=== PATIENT | female | born 1935 | race Caucasian/White ===

== ENCOUNTER 2021-02-01 23:15 | Inpatient (IN) | payer MEDICARE ==
[2021-02-01] MEDS ORDERED: SODIUM CHLORIDE 0.9% 1,000 ML IV STA ×2 (23:28)
--- NOTE | 2021-02-01 23:36 | ED ---
SOB HPI - General Chief Complaint: Shortness of Breath Stated Complaint: SOB Time Seen by Provider: 02/01/21 23:17 Source: patient, EMS, RN notes reviewed, old records reviewed Mode of arrival: EMS Limitations: no limitations - History of Present Illness Initial Comments: This is an 85-year-old female presenting in severe shortness of breath. Patient presents today and complicated atrial fibrillation with RVR severe shortness of breath severe hypoxia oxygen 60s. Patient apparently had coronavirus a-month to 2 months ago. Patient was found to be unresponsive with low pulse ox at outpatient therapy Center. Patient brought to ER by EMS EMS provides history MD Complaint: shortness of breath -: unknown Severity: severe Severity scale (1-10): 10 Consistency: constant Improves With: nothing Worsens With: exertion, movement Known History Of: congestive heart failure, recurrent pneumonia Context: recent URI, recent illness, other (Recently coronavirus) Associated Symptoms: cough Treatments Prior to Arrival: oxygen - Related Data Home Medications Medication Instructions Recorded Confirmed Ascorbic Acid [Vitamin C] 500 mg PO DAILY 04/23/14 02/02/21 Folic Acid 1 mg PO DAILY 04/23/14 02/02/21 atenoloL [Tenormin] 50 mg PO DAILY 04/23/14 02/02/21 Acetaminophen Tab [Tylenol Tab] 500 mg PO Q6H PRN 02/02/21 02/02/21 Apixaban [Eliquis] 2.5 mg PO BID@0900,1700 02/02/21 02/02/21 Cholecalciferol [Vitamin D3 (25 50 mcg PO DAILY 02/02/21 02/02/21 Mcg = 1000 Iu)] Cranberry 450mg 900 mg PO DAILY 02/02/21 02/02/21 Famotidine [Pepcid] 20 mg PO BID@0900,1700 02/02/21 02/02/21 Insulin Lispro [humaLOG Kwikpen] See Protocol SQ AC-TID 02/02/21 02/02/21 Losartan [Cozaar] 50 mg PO DAILY 02/02/21 02/02/21 Multivitamins, Thera [Multivitamin 1 tab PO DAILY 02/02/21 02/02/21 (formulary)] Triamcinolone Acetonide 1 spray EA NOSTRIL DAILY 02/02/21 02/02/21 [Triamcinolone Acetonide 0.055MG Nasal] Zinc 50 mg PO DAILY 02/02/21 02/02/21 cloNIDine 0.3 MG/24HR PATCH 1 patch TRANSDERM FR 02/02/21 02/02/21 [Catapres-Tts 0.3MG Patch] metFORMIN HCL [Glucophage] 500 mg PO BID@0900,1700 02/02/21 02/02/21 predniSONE 5 mg PO DAILY 02/02/21 02/02/21 Allergies Allergy/AdvReac Type Severity Reaction Status Date / Time acetaminophen [From Vicodin] Allergy Confusion Verified 02/02/21 07:04 codeine Allergy Confusion Verified 02/02/21 07:04 hydrocodone bitartrate Allergy Confusion Verified 02/02/21 07:04 [From Vicodin] latex Allergy Rash/Hives Verified 02/02/21 07:04 tramadol HCl [From Ultram] Allergy Nausea Verified 02/02/21 07:04 Review of Systems ROS Statement: Those systems with pertinent positive or pertinent negative responses have been documented in the HPI. ROS Other: All systems not noted in ROS Statement are negative. Past Medical History Past Medical History: Rheumatoid Arthritis (RA), Supraventricular Tachycardia (SVT) History of Any Multi-Drug Resistant Organisms: MRSA Date of last positivie culture/infection: 09/15/17 MDRO Source:: TOE Past Surgical History: Hysterectomy Additional Past Surgical History / Comment(s): fransisco foot surgery, "abd surgery for kink in colon" Past Anesthesia/Blood Transfusion Reactions: Postoperative Nausea & Vomiting (PONV) Past Psychological History: No Psychological Hx Reported Smoking Status: Never smoker Past Alcohol Use History: None Reported Past Drug Use History: None Reported General Exam Limitations: no limitations, altered mental status General appearance: alert, anxious, lethargic, in distress Head exam: Present: atraumatic, normocephalic, normal inspection Eye exam: Present: normal appearance, PERRL, EOMI. Absent: scleral icterus, conjunctival injection, periorbital swelling ENT exam: Present: normal exam, mucous membranes moist Neck exam: Present: normal inspection. Absent: tenderness, meningismus, lymphadenopathy Respiratory exam: Present: respiratory distress, rales, accessory muscle use, decreased breath sounds, prolonged expiratory. Absent: wheezes, rhonchi, stridor Cardiovascular Exam: Present: tachycardia, irregular rhythm, normal heart sounds. Absent: systolic murmur, diastolic murmur, rubs, gallop, clicks GI/Abdominal exam: Present: soft, normal bowel sounds. Absent: distended, tenderness, guarding, rebound, rigid Extremities exam: Present: normal inspection, full ROM, normal capillary refill. Absent: tenderness, pedal edema, joint swelling, calf tenderness Back exam: Present: normal inspection Neurological exam: Present: alert, oriented X3, CN II-XII intact Psychiatric exam: Present: normal affect, normal mood Skin exam: Present: warm, dry, intact, normal color. Absent: rash Course Vital Signs 02/01/21 02/01/21 02/01/21 23:16 23:47 23:54 Temperature 97.9 F Pulse Rate 121 H 130 H Pulse Rate [ Undertaker Helper ] Respiratory 36 H 36 H 385 H Rate Blood Pressure 144/98 135/108 Blood Pressure [Right Arm] O2 Sat by Pulse 88 L 87 L Oximetry 02/02/21 02/02/21 02/02/21 00:00 00:12 00:30 Temperature Pulse Rate 92 92 Pulse Rate [ 130 H Undertaker Helper ] Respiratory 36 H 36 H Rate Blood Pressure 150/100 160/100 Blood Pressure [Right Arm] O2 Sat by Pulse 100 100 Oximetry 02/02/21 02/02/21 02/02/21 01:00 02:00 04:00 Temperature 97.5 F L Pulse Rate 90 92 Pulse Rate [ 100 Undertaker Helper ] Respiratory 32 H 32 H 32 H Rate Blood Pressure 150/80 148/99 Blood Pressure 157/90 [Right Arm] O2 Sat by Pulse 99 95 92 L Oximetry 02/02/21 02/02/21 02/02/21 08:00 12:00 13:01 Temperature 97.5 F L Pulse Rate 107 H Pulse Rate [ 91 110 H Undertaker Helper ] Respiratory 38 H Rate Blood Pressure 135/98 Blood Pressure 138/100 148/87 [Right Arm] O2 Sat by Pulse 88 L 87 L 86 L Oximetry 02/02/21 02/02/21 14:38 16:38 Temperature 99.4 F Pulse Rate 107 H 103 H Pulse Rate [ Undertaker Helper ] Respiratory 36 H 36 H Rate Blood Pressure 115/75 105/78 Blood Pressure [Right Arm] O2 Sat by Pulse 79 L 77 L Oximetry - Reevaluation(s) Reevaluation #1: 02/02/21 00:00 Medical record is reviewed Reevaluation #2: 02/02/21 00:00 Patient's transferring physician prior to arrival - Consultations Consultation #1: Spoke with Dr. Gregoiro, patient will be admitted to months Medical Decision Making - Medical Decision Making 85 female DF for evaluation possible recurrent coronavirus she states she had got over coronavirus about a month ago patient has severe shortness of breath here in the ER. Significant hypoxia pulmonary edema and x-ray. - Lab Data Result diagrams: 02/01/21 23:38 02/01/21 23:38 Lab Results 02/01/21 02/01/21 02/01/21 Range/Units 23:38 23:38 23:38 WBC 9.9 (3.8-10.6) k/uL RBC 4.15 (3.80-5.40) m/uL Hgb 12.4 (11.4-16.0) gm/dL Hct 37.8 (34.0-46.0) % MCV 91.2 (80.0-100.0) fL MCH 29.9 (25.0-35.0) pg MCHC 32.8 (31.0-37.0) g/dL RDW 16.1 H (11.5-15.5) % Plt Count 281 (150-450) k/uL MPV 8.2 Neutrophils % 79 % Lymphocytes % 16 % Monocytes % 3 % Eosinophils % 0 % Basophils % 0 % Neutrophils # 7.8 H (1.3-7.7) k/uL Lymphocytes # 1.6 (1.0-4.8) k/uL Monocytes # 0.3 (0-1.0) k/uL Eosinophils # 0.0 (0-0.7) k/uL Basophils # 0.0 (0-0.2) k/uL Anisocytosis Slight PT 12.1 H (9.0-12.0) sec INR 1.2 H (<1.2) APTT 22.9 (22.0-30.0) sec D-Dimer 4.26 H (<0.60) mg/L FEU Sodium 144 (137-145) mmol/L Potassium 4.3 (3.5-5.1) mmol/L Chloride 107 (98-107) mmol/L Carbon Dioxide 23 (22-30) mmol/L Anion Gap 14 mmol/L BUN 22 H (7-17) mg/dL Creatinine 0.74 (0.52-1.04) mg/dL Est GFR (CKD-EPI)AfAm 87 (>60 ml/min/1.73 sqM) Est GFR (CKD-EPI)NonAf 76 (>60 ml/min/1.73 sqM) Glucose 106 H (74-99) mg/dL Lactic Ac Sepsis Rflx Plasma Lactic Acid Munir (0.7-2.0) mmol/L Calcium 8.7 (8.4-10.2) mg/dL Magnesium 2.0 (1.6-2.3) mg/dL Total Bilirubin 1.1 (0.2-1.3) mg/dL AST 85 H (14-36) U/L ALT 34 (4-34) U/L Alkaline Phosphatase 66 (38-126) U/L Lactate Dehydrogenase 2685 H (313-618) U/L C-Reactive Protein 26.2 H (<1.0) mg/dL Total Protein 6.1 L (6.3-8.2) g/dL Albumin 3.2 L (3.5-5.0) g/dL Coronavirus (PCR) (Not Detectd) 02/01/21 02/02/21 02/02/21 Range/Units 23:38 00:12 00:15 WBC (3.8-10.6) k/uL RBC (3.80-5.40) m/uL Hgb (11.4-16.0) gm/dL Hct (34.0-46.0) % MCV (80.0-100.0) fL MCH (25.0-35.0) pg MCHC (31.0-37.0) g/dL RDW (11.5-15.5) % Plt Count (150-450) k/uL MPV Neutrophils % % Lymphocytes % % Monocytes % % Eosinophils % % Basophils % % Neutrophils # (1.3-7.7) k/uL Lymphocytes # (1.0-4.8) k/uL Monocytes # (0-1.0) k/uL Eosinophils # (0-0.7) k/uL Basophils # (0-0.2) k/uL Anisocytosis PT (9.0-12.0) sec INR (<1.2) APTT (22.0-30.0) sec D-Dimer (<0.60) mg/L FEU Sodium (137-145) mmol/L Potassium (3.5-5.1) mmol/L Chloride (98-107) mmol/L Carbon Dioxide (22-30) mmol/L Anion Gap mmol/L BUN (7-17) mg/dL Creatinine (0.52-1.04) mg/dL Est GFR (CKD-EPI)AfAm (>60 ml/min/1.73 sqM) Est GFR (CKD-EPI)NonAf (>60 ml/min/1.73 sqM) Glucose (74-99) mg/dL Lactic Ac Sepsis Rflx Y Plasma Lactic Acid Munir 4.8 H* (0.7-2.0) mmol/L Calcium (8.4-10.2) mg/dL Magnesium (1.6-2.3) mg/dL Total Bilirubin (0.2-1.3) mg/dL AST (14-36) U/L ALT (4-34) U/L Alkaline Phosphatase (38-126) U/L Lactate Dehydrogenase (313-618) U/L C-Reactive Protein (<1.0) mg/dL Total Protein (6.3-8.2) g/dL Albumin (3.5-5.0) g/dL Coronavirus (PCR) Detected A (Not Detectd) - EKG Data -: EKG Interpreted by Me (EKG A. fib with RVR 126 QRS 84 QTc 475) - Radiology Data Radiology results: report reviewed (Chest x-ray shows severe pulmonary edema likely arts likely coronavirus), image reviewed Critical Care Time Critical Care Time: Yes Total Critical Care Time: 31 Disposition Clinical Impression: Congestive heart failure, Acute pulmonary edema, Acute respiratory failure, Atrial fibrillation with RVR, Coronavirus infection, Pneumonia due to COVID-19 virus Narrative: ?repeat COVID positive? Disposition: DC/TRNS W/I HOSP TO SNF SWING Condition: Critical Is patient prescribed a controlled substance at d/c from ED?: No
[2021-02-01] MEDS ORDERED: DILTIAZEM DRIP BOLUS FROM BAG 1 MG SOLN IV ONE (23:43)
[2021-02-01] MEDS ORDERED: MORPHINE SULFATE 2 MG/ML SYRINGE IVP STA (23:43)
[2021-02-01] MEDS ORDERED: DILTIAZEM 125 MG in SODIUM CHLORIDE 0.9% 100 ML IV SCH (23:45)
[2021-02-01 23:54] LABS: Anisocytosis Slight; Basophils % (A) 0 %; Eosinophils % (A) 0 %; HCT 37.8 % (34.0-46.0); HGB 12.4 gm/dL (11.4-16.0); Lymphocytes # (A) 1.6 k/uL (1.0-4.8); Lymphocytes % (A) 16 %; MCH 29.9 pg (25.0-35.0); MCHC 32.8 g/dL (31.0-37.0); MCV 91.2 fL (80.0-100.0); Mean Platelet Volume 8.2; Monocytes # (A) 0.3 k/uL (0-1.0); Monocytes % (A) 3 %; Neutrophils # (A) 7.8 k/uL (1.3-7.7); Neutrophils % (A) 79 %; Platelet Count 281 k/uL (150-450); RBC 4.15 m/uL (3.80-5.40); RDW 16.1 % (11.5-15.5); WBC 9.9 k/uL (3.8-10.6)
[2021-02-02 00:05] LABS: Albumin 3.2 g/dL (3.5-5.0); Calcium 8.7 mg/dL (8.4-10.2); Total Bilirubin 1.1 mg/dL (0.2-1.3); Total Protein 6.1 g/dL (6.3-8.2)
--- NOTE | 2021-02-02 00:12 | XR ---
EXAMINATION TYPE: XR chest 1V portable DATE OF EXAM: 02/01/2021 COMPARISON: 03/29/2018 HISTORY: Short of breath TECHNIQUE: FINDINGS: There is moderate bilateral pulmonary interstitial and airspace edema. Heart is enlarged. T horacic aorta is atheromatous. There are chest leads. IMPRESSION: Moderately severe edema is new compared to old exam and could relate to RDS.
[2021-02-02 00:14] LABS: INR 1.2 (<1.2); Partial Thromboplastin Time 22.9 sec (22.0-30.0); Prothrombin Time 12.1 sec (9.0-12.0)
[2021-02-02 00:17] LABS: C Reactive Protein 26.2 mg/dL (<1.0); D-Dimer 4.26 mg/L FEU (<0.60); Potassium 4.3 mmol/L (3.5-5.1)
[2021-02-02] MEDS ORDERED: FUROSEMIDE 10 MG/ML 4 ML VIAL IV SCH (03:00)
[2021-02-02] MEDS: MORPHINE SULFATE 2 MG/ML SYRINGE IVP PRN ×3 (03:45→14:44)
--- NOTE | 2021-02-02 09:37 | P.CNPUL ---
History of Present Illness Consult date: 02/02/21 Requesting physician: Frank Kaur Reason for consult: dyspnea, cough, hypoxemia, pneumonia, abnormal CXR/CT Chief complaint: Hypoxemic, mental status changes, atrial fibrillation. History of present illness: 85-year-old female, who presented to the emergency room on February 01, brought in by EMS, with severe shortness of breath. The patient also was noted to have atrial fibrillation, with RVR, and her saturations were apparently in the 60s. The patient was not able to give any history today. We saw her in the emergency room, room 17. She apparently was positive for coronavirus a month or 2 ago. Patient was very poorly responsive we saw her in the emergency department. She is 85 years of age. I did ask the nurse, to call the family about CODE STATUS. Currently, she was on BiPAP settings of IPAP 10, EPAP 5, and 80%. His saturations were in the low 90s. She was given a Cardizem drip at 5 mg an hour, and saline at KVO. Again, she was not very arousable, and was not able to give any additional history. White count 9.9, hemoglobin 12.4, hematocrit 37.8, platelet count 281,000. PT 12.1, INR 1.2, PTT 22.9, and d-dimer 4.26. Sodium 144, potassium 4.3, chlorides 107, common dioxide 23, anion gap 14, BUN 22, creatinine 0.74. Lactic acid was 4.8, repeat was 3.2. Troponin was 0.172. LDH 2685, and C-reactive protein 26.2. She did again test positive for coronavirus on the . Chest x-ray shows diffuse bilateral infiltrates, which could relate to COVID 19 pneumonia and/or fluid overload or both. Review of Systems REVIEW OF SYSTEMS: CONSTITUTIONAL: [Negative.] NEUROLOGIC: [ Negative.] HEENT: [ Negative.] CARDIAC: [Negative.] PULMONARY: Shortness of breath according to EMS. GI: [Negative.] : [Negative.] RHEUMATOLOGIC: [ Negative.] IMMUNOLOGIC: [ Negative.] ENDOCRINE: [Negative. ] DERMATOLOGIC: [Negative.] Past Medical History Past Medical History: Rheumatoid Arthritis (RA), Supraventricular Tachycardia (SVT) History of Any Multi-Drug Resistant Organisms: MRSA Date of last positivie culture/infection: 09/15/17 MDRO Source:: TOE Past Surgical History: Hysterectomy Additional Past Surgical History / Comment(s): fransisco foot surgery, "abd surgery for kink in colon" Past Anesthesia/Blood Transfusion Reactions: Postoperative Nausea & Vomiting (PONV) Past Psychological History: No Psychological Hx Reported Smoking Status: Never smoker Past Alcohol Use History: None Reported Past Drug Use History: None Reported Medications and Allergies Home Medications Medication Instructions Recorded Confirmed Type Ascorbic Acid [Vitamin C] 500 mg PO DAILY 04/23/14 02/02/21 History Folic Acid 1 mg PO DAILY 04/23/14 02/02/21 History atenoloL [Tenormin] 50 mg PO DAILY 04/23/14 02/02/21 History Acetaminophen Tab [Tylenol Tab] 500 mg PO Q6H PRN 02/02/21 02/02/21 History Apixaban [Eliquis] 2.5 mg PO BID@0900,1700 02/02/21 02/02/21 History Cholecalciferol [Vitamin D3 (25 50 mcg PO DAILY 02/02/21 02/02/21 History Mcg = 1000 Iu)] Cranberry 450mg 900 mg PO DAILY 02/02/21 02/02/21 History Famotidine [Pepcid] 20 mg PO BID@0900,1700 02/02/21 02/02/21 History Insulin Lispro [humaLOG Kwikpen] See Protocol SQ AC-TID 02/02/21 02/02/21 History Losartan [Cozaar] 50 mg PO DAILY 02/02/21 02/02/21 History Multivitamins, Thera [Multivitamin 1 tab PO DAILY 02/02/21 02/02/21 History (formulary)] Triamcinolone Acetonide 1 spray EA NOSTRIL DAILY 02/02/21 02/02/21 History [Triamcinolone Acetonide 0.055MG Nasal] Zinc 50 mg PO DAILY 02/02/21 02/02/21 History cloNIDine 0.3 MG/24HR PATCH 1 patch TRANSDERM FR 02/02/21 02/02/21 History [Catapres-Tts 0.3MG Patch] metFORMIN HCL [Glucophage] 500 mg PO BID@0900,1700 02/02/21 02/02/21 History predniSONE 5 mg PO DAILY 02/02/21 02/02/21 History Allergies Allergy/AdvReac Type Severity Reaction Status Date / Time acetaminophen [From Vicodin] Allergy Confusion Verified 02/02/21 07:04 codeine Allergy Confusion Verified 02/02/21 07:04 hydrocodone bitartrate Allergy Confusion Verified 02/02/21 07:04 [From Vicodin] latex Allergy Rash/Hives Verified 02/02/21 07:04 tramadol HCl [From Ultram] Allergy Nausea Verified 02/02/21 07:04 Physical Exam Osteopathic Statement: *. No significant issues noted on an osteopathic structural exam other than those noted in the History and Physical/Consult. Vitals: Vital Signs Temp Pulse Pulse Resp BP BP Pulse Ox 02/02/21 04:00 97.5 F L 100 32 H 157/90 92 L 02/02/21 02:00 92 32 H 148/99 95 02/02/21 01:00 90 32 H 150/80 99 02/02/21 00:30 92 36 H 160/100 100 02/02/21 00:12 92 36 H 150/100 100 02/02/21 00:00 130 H 02/01/21 23:54 385 H 02/01/21 23:47 130 H 36 H 135/108 87 L 02/01/21 23:16 97.9 F 121 H 36 H 144/98 88 L Intake and Output 02/01/21 02/02/21 02/02/21 22:59 06:59 14:59 Intake Total 390 Output Total 1300 Balance -910 Intake: Intake, IV Titration 390 Amount Sodium Chloride 0.9% 1, 390 000 ml @ 130 mls/hr IV . Q7H42M STA Rx#:[id number] Oral 0 Output: Urine 1300 Uretheral (Flood) 300 Other: Weight 49.895 kg No acute distress, very lethargic and somnolent, barely arousable, not able to g rosa any additional history. Saturations are in the low 90s. HEENT examination is grossly unremarkable. BiPAP mask in place. Neck supple. Full range of motion. No adenopathy thyromegaly or neck vein distention. Cardiovascular examination reveals regular rhythm rate. S1-S2 normal. No S3 or S4. No discernible murmur noted. Heart sounds distant, heart rate 92 bpm. Lungs reveal coarse bilateral rhonchi and crackles. Breath sounds equal bilaterally. She does not take deep breaths. No wheezes. Abdomen soft bowel sounds are heard. No masses or tenderness. Extremities are intact. No cyanosis clubbing or edema. Skin is without rash or lesion. Neurologic examination reveals a very lethargic and somnolent woman who is barely arousable. Results - Laboratory Findings CBC and BMP: 02/01/21 23:38 02/01/21 23:38 PT/INR, D-dimer PT 12.1 sec (9.0-12.0) H 02/01/21 23:38 INR 1.2 (<1.2) H 02/01/21 23:38 D-Dimer 4.26 mg/L FEU (<0.60) H 02/01/21 23:38 Abnormal lab findings: Abnormal Labs 02/01/21 02/01/21 02/01/21 23:38 23:38 23:38 RDW 16.1 H Neutrophils # 7.8 H PT 12.1 H INR 1.2 H D-Dimer 4.26 H BUN 22 H Glucose 106 H Plasma Lactic Acid Munir AST 85 H Lactate Dehydrogenase 2685 H Troponin I C-Reactive Protein 26.2 H Total Protein 6.1 L Albumin 3.2 L Coronavirus (PCR) 02/01/21 02/02/21 02/02/21 23:38 00:15 02:33 RDW Neutrophils # PT INR D-Dimer BUN Glucose Plasma Lactic Acid Munir 4.8 H* AST Lactate Dehydrogenase Troponin I 0.184 H* C-Reactive Protein Total Protein Albumin Coronavirus (PCR) Detected A 02/02/21 02/02/21 02/02/21 02:33 04:55 04:55 RDW Neutrophils # PT INR D-Dimer BUN Glucose Plasma Lactic Acid Munir 3.4 H* 3.2 H* AST Lactate Dehydrogenase Troponin I 0.172 H* C-Reactive Protein Total Protein Albumin Coronavirus (PCR) - Diagnostic Findings Chest x-ray: image reviewed Assessment and Plan Assessment: Acute hypoxemic respiratory failure, likely multifactorial, in part related to atrial fibrillation/RVR, possible fluid overload, possible aspiration pneumonia, and possible COVID 19 pneumonia/pneumonitis. History of rheumatoid arthritis. History of supraventricular tachycardia. Prior history of methicillin-resistant staph aureus infection of the toe. Hypothyroidism. Chronic immunosuppression, currently on methotrexate and prednisone for rheu matoid arthritis. Plan: Plan dated 02/02/2021. Since we saw the patient, the nurse did call the family and did get a DO NOT RESUSCITATE order from the family. That is very appropriate given her age and how sick she is currently. She is poorly responsive. She would not do well should she had been intubated or mechanically ventilated. The patient's currently on a Cardizem drip. She's got Lasix and morphine ordered as well. If the patient is able take oral medications, she should be placed on vitamin C, vitamin D3, and zinc. In addition, she should receive anticoagulation either with IV heparin and/or Lovenox given her A. fib and her elevated d-dimer. In addition, the patient should get Decadron 6 mg IV daily. Finally, he would not be a bad idea to place the patient on an antibiotic, such as Zosyn 3.375 g, every 12. Additional recommendations and suggestions are forthcoming. Many of these were initially placed by the primary service. No additional recommendations are made. Prognosis is very poor. Time with Patient: Greater than 30
--- NOTE | 2021-02-02 11:14 | ECHOF ---
Referral Reason:Heart Failure MEASUREMENTS -------- HEIGHT: 152.4 cm WEIGHT: 49.9 kg BP: RVIDd: 2.9 cm (< 3.3) IVSd: 1.3 cm (0.6 - 1.1) LVIDd: 3.4 cm (3.9 - 5.3) LVPWd: 1.8 cm (0.6 - 1.1) IVSs: 1.7 cm LVIDs: 2.7 cm LVPWs: 0.9 cm LA Diam: 5.1 cm (2.7 - 3.8) Ao Diam: 3.1 cm (2.0 - 3.7) LA Diam: 4.9 cm (2.7 - 3.8) MV E Shilo: 1.04 m/s MV DecT: 219 ms MV A Shilo: 0.25 m/s MV E/A Ratio: 4.07 AV maxP.41 mmHg AV maxP.41 mmHg AV meanP.50 mmHg RAP: 5.00 mmHg RVSP: 65.94 mmHg FINDINGS -------- Sinus rhythm. This was a technically adequate study. Pt is Covid positive. LV size, wall thickness and systolic function are normal, with an EF greater than 55%. The left adi tricular size is normal. The right ventricle is normal in size. The left atrium is markedly dilated. The right atrial size is normal. There is mild aortic valve sclerosis. There is mild aortic regurgitation. Peak/mean gradient acro ss the Aortic Valve is 12.41mmHg / 6.50mmHg. Moderate mitral annular calcification present. Moderate mitral regurgitation is present. [id number] tricuspid regurgitation present. There is moderate to severe pulmonary hypertensio n. The right ventricular systolic pressure, as measured by Doppler, is 65.94mmHg. Moderate pulmonic regurgitation. The aortic root size is normal. There is no pericardial effusion. CONCLUSIONS -------- 1. Pt is Covid positive. 2. LV size, wall thickness and systolic function are normal, with an EF greater than 55%. 3. The left atrium is markedly dilated. 4. There is mild aortic regurgitation. 5. Peak/mean gradient across the Aortic Valve is 12.41mmHg / 6.50mmHg. 6. Moderate mitral regurgitation is present. 7. Stvs-in-mlagmhcw tricuspid regurgitation present. 8. There is moderate to severe pulmonary hypertension. 9. Moderate pulmonic regurgitation. 10. There is no pericardial effusion. BRANCH ADMINISTRATOR: Melanie Brantley RDCS
[2021-02-02] MEDS ORDERED: LORazepam 2 MG/ML INJ IV PRN (12:38)
--- NOTE | 2021-02-02 12:57 | P.CRDCN ---
History of Present Illness Consult date: 02/02/21 History of present illness: This 85-year-old female with history of rheumatoid arthritis on steroids and methotrexate was brought into the hospital with complaints of increasing shortness of breath and altered mental status. Patient is unable to communicate and lethargic. Patient is diagnosed to have COVID infection about a month ago. She was found to be in atrial fibrillation with rapid and corresponds. Chest x- ray showed bilateral edema versus infiltrates. This is felt to be in respiratory failure secondary to pulmonary edema versus infiltrates. Patient was seen by a mobile therapist and felt to be candidate with poor prognosis. Patient is made no code by the family. They think of making her comfort care/hospice care. Patient is on IV Cardizem for control of heart rate. She is going to receive a dose of Lovenox until family decides about the further course of action. The respiratory failure felt to be multifactorial. She is being treated for "infection with steroids and according to the protocol. She is also being treated with antibiotics. 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 Overall her prognosis is very poor and most probably she will be considered for hospice care. If that's the case. We'll sign off the case. Review of Systems Not obtained Past Medical History Past Medical History: Rheumatoid Arthritis (RA), Supraventricular Tachycardia (SVT) History of Any Multi-Drug Resistant Organisms: MRSA Date of last positivie culture/infection: 09/15/17 MDRO Source:: TOE Past Surgical History: Hysterectomy Additional Past Surgical History / Comment(s): fransisco foot surgery, "abd surgery for kink in colon" Past Anesthesia/Blood Transfusion Reactions: Postoperative Nausea & Vomiting (PONV) Past Psychological History: No Psychological Hx Reported Smoking Status: Never smoker Past Alcohol Use History: None Reported Past Drug Use History: None Reported Medications and Allergies Home Medications Medication Instructions Recorded Confirmed Type Ascorbic Acid [Vitamin C] 500 mg PO DAILY 04/23/14 02/02/21 History Folic Acid 1 mg PO DAILY 04/23/14 02/02/21 History atenoloL [Tenormin] 50 mg PO DAILY 04/23/14 02/02/21 History Acetaminophen Tab [Tylenol Tab] 500 mg PO Q6H PRN 02/02/21 02/02/21 History Apixaban [Eliquis] 2.5 mg PO BID@0900,1700 04/26/21 04/26/21 History Cholecalciferol [Vitamin D3 (25 50 mcg PO DAILY 02/02/21 02/02/21 History Mcg = 1000 Iu)] Cranberry 450mg 900 mg PO DAILY 02/02/21 02/02/21 History Famotidine [Pepcid] 20 mg PO BID@0900,1700 02/02/21 02/02/21 History Insulin Lispro [humaLOG Kwikpen] See Protocol SQ AC-TID 02/02/21 02/02/21 History Losartan [Cozaar] 50 mg PO DAILY 02/02/21 02/02/21 History Multivitamins, Thera [Multivitamin 1 tab PO DAILY 02/02/21 02/02/21 History (formulary)] Triamcinolone Acetonide 1 spray EA NOSTRIL DAILY 02/02/21 02/02/21 History [Triamcinolone Acetonide 0.055MG Nasal] Zinc 50 mg PO DAILY 02/02/21 02/02/21 History cloNIDine 0.3 MG/24HR PATCH 1 patch TRANSDERM FR 02/02/21 02/02/21 History [Catapres-Tts 0.3MG Patch] metFORMIN HCL [Glucophage] 500 mg PO BID@0900,1700 02/02/21 02/02/21 History predniSONE 5 mg PO DAILY 02/02/21 02/02/21 History Allergies Allergy/AdvReac Type Severity Reaction Status Date / Time acetaminophen [From Vicodin] Allergy Confusion Verified 02/02/21 07:04 codeine Allergy Confusion Verified 02/02/21 07:04 hydrocodone bitartrate Allergy Confusion Verified 02/02/21 07:04 [From Vicodin] latex Allergy Rash/Hives Verified 02/02/21 07:04 tramadol HCl [From Ultram] Allergy Nausea Verified 02/02/21 07:04 Physical Exam Vitals: Vital Signs Temp Pulse Pulse Resp BP BP Pulse Ox 02/02/21 12:00 110 H 148/87 87 L 02/02/21 08:00 97.5 F L 91 138/100 88 L 02/02/21 04:00 97.5 F L 100 32 H 157/90 92 L 02/02/21 02:00 92 32 H 148/99 95 02/02/21 01:00 90 32 H 150/80 99 02/02/21 00:30 92 36 H 160/100 100 02/02/21 00:12 92 36 H 150/100 100 02/02/21 00:00 130 H 02/01/21 23:54 385 H 02/01/21 23:47 130 H 36 H 135/108 87 L 02/01/21 23:16 97.9 F 121 H 36 H 144/98 88 L Intake and Output 02/01/21 02/02/21 02/02/21 22:59 06:59 14:59 Intake Total 390 Output Total 1300 Balance -910 Intake: Intake, IV Titration 390 Amount Sodium Chloride 0.9% 1, 390 000 ml @ 130 mls/hr IV . Q7H42M STA Rx#:[id number] Oral 0 Output: Urine 1300 Uretheral (Flood) 300 Other: Voiding Method Indwelling Catheter Weight 49.895 kg Patient is not personally examined because of COVID infection. Information is gathered from consultants notes and also from attending nurse. We'll add Lovenox at this time. Patient is not considered for hospice care, we'll make consider IV Lanoxin for rate control. Further recommendations depend upon the clinical course Results 02/01/21 23:38 02/01/21 23:38 Cardiac Enzymes 02/01/21 02/02/21 02/02/21 Range/Units 23:38 02:33 04:55 AST 85 H (14-36) U/L Lactate Dehydrogenase 2685 H (313-618) U/L Troponin I 0.184 H* 0.172 H* (0.000-0.034) ng/mL Coagulation 02/01/21 Range/Units 23:38 PT 12.1 H (9.0-12.0) sec APTT 22.9 (22.0-30.0) sec CBC 02/01/21 Range/Units 23:38 WBC 9.9 (3.8-10.6) k/uL RBC 4.15 (3.80-5.40) m/uL Hgb 12.4 (11.4-16.0) gm/dL Hct 37.8 (34.0-46.0) % Plt Count 281 (150-450) k/uL Comprehensive Metabolic Panel 02/01/21 Range/Units 23:38 Sodium 144 (137-145) mmol/L Potassium 4.3 (3.5-5.1) mmol/L Chloride 107 (98-107) mmol/L Carbon Dioxide 23 (22-30) mmol/L BUN 22 H (7-17) mg/dL Creatinine 0.74 (0.52-1.04) mg/dL Glucose 106 H (74-99) mg/dL Calcium 8.7 (8.4-10.2) mg/dL AST 85 H (14-36) U/L ALT 34 (4-34) U/L Alkaline Phosphatase 66 (38-126) U/L Total Protein 6.1 L (6.3-8.2) g/dL Albumin 3.2 L (3.5-5.0) g/dL Current Medications Generic Name Dose Route Start Last Admin Trade Name Freq PRN Reason Stop Dose Admin Furosemide 40 mg 02/02/21 03:00 02/02/21 03:45 Furosemide 10 Mg/Ml 4 Ml Vial IV 40 mg Q12H EAGLE Administration Diltiazem HCl 125 mg/ Sodium 125 mls @ 5 mls/hr 02/01/21 23:45 02/02/21 00:01 Chloride IV 5 mg/hr .Q24H EAGLE 5 mls/hr Administration 5 MG/HR Lorazepam 0.5 mg 02/02/21 12:38 Lorazepam 2 Mg/Ml Inj IV Q6HR PRN Anxiety Morphine Sulfate 2 mg 02/01/21 23:43 02/02/21 09:22 Morphine Sulfate 2 Mg/Ml Syringe IVP 2 mg Q4H PRN Administration Pain/Discomfort Intake and Output 02/01/21 02/02/21 02/02/21 22:59 06:59 14:59 Intake Total 390 Output Total 1300 Balance -910 Intake: Intake, IV Titration 390 Amount Sodium Chloride 0.9% 1, 390 000 ml @ 130 mls/hr IV . Q7H42M STA Rx#:[id number] Oral 0 Output: Urine 1300 Uretheral (Flood) 300 Other: Voiding Method Indwelling Catheter Weight 49.895 kg 02/01/21 23:38 02/01/21 23:38
[2021-02-02 14:40] VITALS: RESP 36
[2021-02-02 16:39] VITALS: BP 105/78; PULSE 103; TEMP 99.4
--- NOTE | 2021-02-02 18:44 | HP ---
HISTORY AND PHYSICAL This is an 85-year-old white female with a history of rheumatoid arthritis, methotrexate, recent COVID pneumonia. For the last 1-2 months she was found to have atrial fibrillation with rapid ventricular response, bilateral infiltrates with positive COVID. The patient is on a high-flow BiPAP. Family wants her comfort care. She is more somnolent and not communicating. They did not recommend she not be on any oxygen fdc or go on a ventilator. Pulmonary apparently talked to them about DNR and limited improvement being offered in the future due to moderate to severe tricuspid regurgitation, severe pulmonary hypertension. They recommended hospice, at which time we discussed the case with the family members, apparently 3 daughters and the son, and they recommended they want hospice and they want the patient taken off oxygen. PAST MEDICAL HISTORY: Rheumatoid arthritis, SVT, MRSA, COVID, COVID pneumonia. MEDICATIONS: See list. She also has a history of hypertension, atrial fibrillation. She is on Cardizem drip for atrial fibrillation at this time. Diabetes mellitus. ALLERGIES: VICODIN, TRAMADOL, LATEX. HOME MEDICINES: 1. Folic acid 1 mg daily. 2. Ascorbic acid 500 daily. 3. Tenormin 50 daily. 4. Eliquis 2.5 b.i.d. 5. Vitamin D3 1000 units daily. 6. Cranberries 450 mg daily. 7. Humalog KwikPen before meals and at bedtime. 8. Cozaar 50 daily. 9. Multivitamin daily. 10.Zinc 50 daily. 11.Catapres patch 0.3 mg every week. 12.Metformin 500 b.i.d. 13.Prednisone 5 mg daily. PHYSICAL EXAMINATION: Temperature 97.9, heart rate 90s to 130s, respiratory rate 30 to 35, pulse ox in the high 80s on BiPAP 70% air flow. Blood pressure is 140s to 160s over 90 to 100. PSYCH: She appears somnolent, non-arousable. CARDIOVASCULAR: S1, S2. Irregularly regular rhythm, tachy. Lungs show scattered rhonchi and wheeze. GI: Soft. EXTREMITIES: One to two plus edema. Inflammatory factors are all high. Lactic acid is 2685. Troponins are high at 0.172 and 0.184. Liver enzymes are elevated at AST of 85. Albumin is low at 3.2. BUN is 22, creatinine 0.74. ASSESSMENT: 1. COVID pneumonia. 2. COVID-19 acute hypoxemic respiratory failure. 3. Severe pulmonary hypertension. 4. Tricuspid regurgitation. 5. Atrial fibrillation, rapid ventricular response. Prognosis is guarded. Family wants comfort care. They want her taken off her oxygen. All family members are in agreement. I talked to them all due to poor prognosis. She has lactic acidosis, elevated troponin secondary to COVID-19. Prognosis extremely guarded. Please see hospice orders. MMODL / IJN: [id number] /
== END 2021-02-02 17:55 | disposition hospice, inpatient (51) | DRG 177 ==
LOC: EC 23:15 → 3SCARD 02-02 01:43
PROVIDERS: ADMIT Family Medicine; ATTEND Family Medicine
PROC: 5A09357 Assistance with Respiratory Ventilation, Less than 24 Consecutive Hours, Continuous Positive Airway Pressure (ICD-10-PCS; principal; 2021-02-02)
DX: U07.1 COVID-19 (principal); J96.01 Acute respiratory failure with hypoxia; J12.82 Pneumonia due to coronavirus disease 2019; I47.1 Supraventricular tachycardia; D84.9 Immunodeficiency, unspecified; E87.2 Acidosis; I48.91 Unspecified atrial fibrillation; Z51.5 Encounter for palliative care; I50.9 Heart failure, unspecified; M06.9 Rheumatoid arthritis, unspecified; Z66 Do not resuscitate; E03.9 Hypothyroidism, unspecified; M19.90 Unspecified osteoarthritis, unspecified site; Z90.710 Acquired absence of both cervix and uterus; Z88.5 Allergy status to narcotic agent; Z91.040 Latex allergy status; Z79.82 Long term (current) use of aspirin; Z79.890 Hormone replacement therapy; Z79.1 Long term (current) use of non-steroidal anti-inflammatories (NSAID); Z79.899 Other long term (current) drug therapy; Z79.52 Long term (current) use of systemic steroids; Z79.01 Long term (current) use of anticoagulants; Z79.84 Long term (current) use of oral hypoglycemic drugs; Z87.01 Personal history of pneumonia (recurrent); Z86.14 Personal history of Methicillin resistant Staphylococcus aureus infection; I27.20 Pulmonary hypertension, unspecified; I07.1 Rheumatic tricuspid insufficiency
CPT/HCPCS: 36415; 71045; 80053; 83605; 83615; 83735; 84484; 85025; 85379; 85610; 85730; 86140; 87040; 87635; 93005; 93306; 94660; 96361; 96374; 96375; 99285

== ENCOUNTER 2021-02-02 19:00 | Inpatient (IN) | payer MEDICAID ==
[~2021-02-02 19:00] MED LIST: ACETAMINOPHEN SUPPOSITORY 650 MG SUPP RECTAL PRN; ATROPINE OPHTH SOLN 1% 5ML BTL SUBLINGUAL PRN; GLYCOPYRROLATE 0.2 MG/ML 2 ML VIAL IVP PRN; LORazepam 2 MG/ML INJ IV PRN; MORPHINE SULFATE (100 MG/2 ML) 100 MG in SODIUM CHLORIDE 0.9% 100 ML IV SCH; MORPHINE SULFATE 2 MG/ML SYRINGE IV PRN; SCOPOLAMINE 1.5MG/72HR PATCH TRANSDERM SCH
== END 2021-02-02 20:50 | disposition expired | DRG 951 ==
LOC: EC 19:00 → EDSTATUS 19:00 → 3SCARD 19:17 → 1SOBS 20:49
PROVIDERS: ADMIT Family Medicine; ATTEND Family Medicine
DX: Z51.5 Encounter for palliative care (principal); J18.9 Pneumonia, unspecified organism; B94.8 Sequelae of other specified infectious and parasitic diseases; I48.91 Unspecified atrial fibrillation